=== PATIENT | female | born 2000 | race Caucasian/White ===

== ENCOUNTER 2021-06-01 11:32 | Emergency (ER) | payer MEDICAID ==
[~2021-06-01] VITALS: Ht 157.5 cm; Wt 111.4 kg
[2021-06-01 11:40] VITALS: BP 107/86
[2021-06-01] MEDS ORDERED: TETanus/Pertussis (Acell)/Diphther VAC/PF (Tdap-Adult) 0.5ml syringe IMVAC ONE (13:10)
== END 2021-06-01 15:58 | disposition home or self-care (01) ==
LOC: ER 11:33
DX: S91.331A Puncture wound without foreign body, right foot, initial encounter (principal); M79.671 Pain in right foot; Z88.0 Allergy status to penicillin; Z20.3 Contact with and (suspected) exposure to rabies; W22.8XXA Striking against or struck by other objects, initial encounter; Y93.89 Activity, other specified; Y92.89 Other specified places as the place of occurrence of the external cause; Y99.8 Other external cause status
CPT/HCPCS: 90471; 90715; 99283

== ENCOUNTER 2021-07-18 13:36 | Emergency (ER) | payer MEDICARE, MEDICAID ==
[~2021-07-18] VITALS: Ht 157.5 cm; Wt 115.0 kg
[2021-07-18 14:04] VITALS: BP 116/73
[2021-07-18] MEDS ORDERED: ibuprofen tablet 400 MG TABLET PO ONE (14:30)
[2021-07-18] MEDS ORDERED: IBUP-1986 PO (14:42)
--- NOTE | 2021-07-18 15:26 | NUR ---
PT PLACED IN LEFT ELBOW SLING
[2021-07-18] MEDS ORDERED: HYDR-3965 PO (16:35)
[2021-07-19] MEDS ORDERED: HYDR-3965 PO (12:34)
== END 2021-07-18 17:00 | disposition home or self-care (01) ==
LOC: ER 13:37
DX: S42.465A Nondisplaced fracture of medial condyle of left humerus, initial encounter for closed fracture (principal); Z88.0 Allergy status to penicillin; Z79.899 Other long term (current) drug therapy; W01.0XXA Fall on same level from slipping, tripping and stumbling without subsequent striking against object, initial encounter; Y93.89 Activity, other specified; Y92.89 Other specified places as the place of occurrence of the external cause; Y99.8 Other external cause status
CPT/HCPCS: 29105; 73080; 99283

== ENCOUNTER 2021-07-27 11:47 | Emergency (ER) | payer MEDICARE, MEDICAID ==
[~2021-07-27] VITALS: Ht 157.5 cm; Wt 115.6 kg
[~2021-07-27 11:47] MED LIST: HYDR-3965 PO; IBUP-1986 PO
[2021-07-27 12:05] VITALS: BP 138/86
[2021-07-27] MEDS ORDERED: morphine 4 MG/ML inj SYRINge IV ONE (15:20)
== END 2021-07-27 14:27 | disposition home or self-care (01) ==
LOC: ER 11:47
DX: S42.402A Unspecified fracture of lower end of left humerus, initial encounter for closed fracture (principal); Z88.0 Allergy status to penicillin; Z79.899 Other long term (current) drug therapy; X58.XXXA Exposure to other specified factors, initial encounter; Y93.89 Activity, other specified; Y92.89 Other specified places as the place of occurrence of the external cause; Y99.8 Other external cause status
CPT/HCPCS: 99282

== ENCOUNTER 2023-07-02 12:36 | Emergency (ER) | payer MEDICARE, MEDICAID ==
[~2023-07-02] VITALS: Ht 157.5 cm; Wt 121.9 kg
[~2023-07-02 12:36] MED LIST changes: -HYDR-3965 PO
[2023-07-02 12:43] VITALS: BP 133/97; PULSE 78; RESP 18; TEMP 97.8; O2SAT 98
[2023-07-02] MEDS ORDERED: DIPH25TA62 PO (13:40)
[2023-07-02] MEDS ORDERED: PRED10TA23 PO (13:40)
[2023-07-02] MEDS ORDERED: CLIN300C54 PO (13:40)
== END 2023-07-02 13:45 | disposition home or self-care (01) ==
LOC: ER 12:36
DX: S30.861A Insect bite (nonvenomous) of abdominal wall, initial encounter (principal); Z88.0 Allergy status to penicillin; W57.XXXA Bitten or stung by nonvenomous insect and other nonvenomous arthropods, initial encounter; Y93.89 Activity, other specified; Y92.89 Other specified places as the place of occurrence of the external cause; Y99.8 Other external cause status
CPT/HCPCS: 99283